=== PATIENT | female | born 1990 | race Caucasian/White ===

== ENCOUNTER 2024-02-18 15:47 | Outpatient (CLI) | payer MEDICAID, SELFPAY | END 2024-02-18 15:48 | disposition home or self-care (01) | PROVIDERS: PCP Nurse Practitioner Family; Visit Provider Nurse Practitioner Family | DX: N93.9 Abnormal uterine and vaginal bleeding, unspecified (principal); E66.9 Obesity, unspecified; R63.5 Abnormal weight gain | CPT/HCPCS: 84443; 85025 ==

== ENCOUNTER 2024-02-25 12:57 | Outpatient (CLI) | payer MEDICAID, SELFPAY ==
--- NOTE | 2024-02-25 13:00 | CRLHL7_ITS ---
For Patients: As a result of the Century Cures Act, medical imaging exams and procedure reports are released immediately into your electronic medical record. You may view this report before your referring provider. If you have questions, please contact your health care provider. INDICATION: abnormal uterine and vaginal bleeding COMPARISON: none TECHNIQUE: 2D shah scale and color Doppler images were acquired of the pelvis using a transabdominal and transvaginal approach. FINDINGS: Sonographic images demonstrate a normal size and smooth outer contour of the uterus. Uterus measures 8.4 cm in length by 3.7 cm in AP diameter by 4.4 cm in transverse dimension. The myometrium has a normal uniform echotexture. The endometrial lining measures 6.6 mm in composite thickness. IUD is present with the left arm extending into the myometrium. IUD located within mid endometrial canal. The right ovary measures 4.1 x 3.4 x 3.2 cm in size and the left ovary measures 3.1 x 2.7 x 3.7 cm. The ovaries demonstrate normal arterial and venous blood flow on color Doppler analysis. There are no suspicious fluid collections within the cul-de-sac. Hypoechoic cyst within the right ovary measuring 2.1 x 1.6 x 1.8 cm. IMPRESSION: IUD is present in the mid endometrial canal with the left arm extending into the myometrium. Endometrial thickness 6.6 millimeters. Hemorrhagic right ovarian cyst measures 2.1 cm. Dictated by Taran Malave MD @ 02/26/2024 6:55:30 AM (Electronically Signed)
== END 2024-02-25 12:58 | disposition home or self-care (01) ==
LOC: US 12:58
PROVIDERS: PCP Nurse Practitioner Family; Visit Provider Nurse Practitioner Family
DX: N93.9 Abnormal uterine and vaginal bleeding, unspecified (principal); N83.201 Unspecified ovarian cyst, right side; R93.89 Abnormal findings on diagnostic imaging of other specified body structures
CPT/HCPCS: 76830; 76856